=== PATIENT | male | born 1980 | race Caucasian/White ===

== ENCOUNTER 2019-11-16 07:23 | Emergency (ER) | payer OTHER ==
[~2019-11-16] VITALS: Ht 188 cm; Wt 86.2 kg
[2019-11-16] MEDS ORDERED: BLEPH-105 ML OPTH (08:11)
== END 2019-11-16 08:22 | disposition home or self-care (01) ==
LOC: ED 07:23
DX: T15.01XA Foreign body in cornea, right eye, initial encounter (principal)
CPT/HCPCS: 65222; 99283-25